=== PATIENT | female | born 1975 | race Caucasian/White ===

== ENCOUNTER 2018-03-19 19:27 | Emergency (ER) | payer OTHER ==
[~2018-03-19] VITALS: Ht 147.3 cm; Wt 70.8 kg
[2018-03-19 19:52] VITALS: Ht 147.3 cm; Wt 70.8 kg
[2018-03-19 21:17] VITALS: BP 170/94
== END 2018-03-19 21:17 | disposition home or self-care (01) ==
LOC: ED 19:27
DX: H60.93 Unspecified otitis externa, bilateral (principal); R03.0 Elevated blood-pressure reading, without diagnosis of hypertension